=== PATIENT | female | born 1960 | race Caucasian/White ===

== ENCOUNTER 2023-02-19 08:05 | Inpatient (IN) | payer MEDICARE, BC ==
[~2023-02-19] VITALS: Ht 165.1 cm; Wt 159.5 kg
[~2023-02-19 08:05] MED LIST: ACET-2319 PO; CHOL200074 PO; ESCI20TA39 PO; FERR325T28 PO; HYDR-4383 PO; LEVO137T2 PO; LISI1TAB51 PO; NAPR375T PO; ONDA4TAB6 PO; OXYC-150 PO; PANT-47 PO
[2023-02-19] MEDS ORDERED: TETanus/Pertussis (Acell)/Diphther VAC/PF (Tdap-Adult) 0.5ml syringe IMVAC ONE (09:00)
[2023-02-19] MEDS ORDERED: silver sulfadiazine cream 400gm jar TP SCH (09:00)
[2023-02-19 09:13] LABS: BASOPHILS % (AUTO) 0.2 % (0-1); EOSINOPHILS # (AUTO) 0.2 X10'3 (0-0.9); EOSINOPHILS % (AUTO) 1.4 % (0-6); HEMATOCRIT 40.2 % (35.0-45.0); HEMOGLOBIN 12.9 g/dl (12.0-16.0); LYMPHOCYTES # (AUTO) 0.2 X10'3 (1.1-4.8); LYMPHOCYTES % (AUTO) 1.3 % (21-51); MEAN CORPUSCULAR HEMOGLOBIN 28.3 PG (27.0-31.0); MEAN CORPUSCULAR HGB CONC 32.2 g/dL (33.0-36.5); MEAN PLATELET VOLUME 9.2 FL (7.4-10.4); MONOCYTES # (AUTO) 0.6 X10'3 (0-0.9); MONOCYTES % (AUTO) 4.2 % (2-12); NEUTROPHILS # (AUTO) 13.9 X10'3 (1.8-7.7); NEUTROPHILS % (AUTO) 92.9 % (42-75); PLATELET COUNT 259 X10'3 (140-440); RED BLOOD COUNT 4.57 X10'6 (4.20-5.60); RED CELL DISTRIBUTION WIDTH 15.4 % (11.5-14.5); WHITE BLOOD COUNT 14.9 X10'3 (4.5-11.0)
[2023-02-19 09:17] LABS: INR 1.1 INR; PROTHROMBIN TIME 12.2 SECONDS (9.0-12.0)
[2023-02-19 09:21] LABS: ALANINE AMINOTRANSFERASE 33 U/L (12-78); ALBUMIN 2.8 G/DL (3.4-5.0); ALBUMIN/GLOBULIN RATIO 0.7 (1.1-1.5); ALKALINE PHOSPHATASE 37 IU/L (46-116); ANION GAP 17 (8-16); ASPARTATE AMINO TRANSFERASE 36 U/L (10-37); BILIRUBIN,TOTAL 1.3 MG/DL (0.1-1.0); BLOOD UREA NITROGEN 37 MG/DL (7-18); CALCIUM 8.1 MG/DL (8.5-10.1); CHLORIDE 90 MMOL/L (99-107); CREATININE 2.47 MG/DL (0.40-0.90); GLUCOSE 126 MG/DL (70-104); SODIUM 126 MMOL/L (135-145); TOTAL CARBON DIOXIDE 18.9 MMOL/L (24-32); TOTAL PROTEIN 7.1 G/DL (6.4-8.2); eCRCL 20 ML/MIN; eGFR 20 ML/MIN
[2023-02-19 09:24] LABS: POTASSIUM 3.7 MMOL/L (3.5-5.1)
[2023-02-19] MEDS ORDERED: morphine 4 MG/ML inj SYRINge IV ONE (11:10)
[2023-02-19 11:24] LABS: PLATELET ESTIMATE NORMAL; TOTAL CELLS COUNTED 100
[2023-02-19 11:25] LABS: ROULEAUX 1+
[2023-02-19 13:16] LABS: BILIRUBIN,URINE SMALL (Neg); CLARITY,URINE CLOUDY (Clear); COLOR,URINE YELLOW (Yellow); GLUCOSE, URINE 100 mg/dl (Neg); KETONES,URINE TRACE mg/dl (Neg); LEUKOCYTE ESTERASE ,URINE MODERATE (Neg); OCCULT BLOOD,URINE MODERATE (Neg); PROTEIN,URINE 100 mg/dl (Neg)
[2023-02-19 13:22] LABS: NITRITES, URINE NEGATIVE (Neg)
[2023-02-19 13:25] LABS: UA COLLECTION TYPE VOIDED
[2023-02-19 13:47] LABS: WBC,URINE TNTC /HPF (0-4)
[2023-02-19 13:48] LABS: WBC CLUMPS,URINE MANY /HPF (NEGATIVE)
[2023-02-19 13:50] LABS: CAL OXALATE CRYSTALS 4+ /HPF (NEGATIVE)
[2023-02-19 13:52] LABS: URIC ACID CRYSTALS 1+ /HPF (NEGATIVE)
[2023-02-19 13:54] LABS: BACTERIA,URINE 3+ /HPF (Neg)
[2023-02-19 14:01] LABS: MUCUS STRANDS NONE SEEN /LPF (Neg); SQUAMOUS EPITHELIAL CELL,UR MODERATE /LPF (FEW)
[2023-02-19] MEDS ORDERED: CefTRIAXone/D5W-Rocephin 1gm 50 ML IV ONE (14:10)
[2023-02-19] MEDS ORDERED: normal saline 1000ML IV soln IVB ONE ×2 (14:15)
[2023-02-19] MEDS ORDERED: diphenhydrAMINE 25mg capsule PO PRN (15:35)
[2023-02-19] MEDS ORDERED: normal saline 1000ml 1,000 ML IV SCH (15:35)
[2023-02-19] MEDS ORDERED: magnesium 4gm in 100ml NS 100 ML IV PRN (15:35)
[2023-02-19] MEDS ORDERED: potassium Cl 40MEQ/1/2NS 520ml 520 ML IV PRN (15:35)
[2023-02-19] MEDS ORDERED: acetaminophen 325mg tablet PO PRN (15:35)
[2023-02-19] MEDS ORDERED: magnesium 2GM in 50ml NS 50 ML IV PRN (15:35)
[2023-02-19] MEDS ORDERED: potassium Cl 20 mEq SR tablet PO PRN ×2 (15:35)
[2023-02-19] MEDS ORDERED: ondansetron/PF 4mg/2ml inj IV PRN (15:35)
[2023-02-19] MEDS ORDERED: magnesium Cl slow-release 64mg tablet PO PRN (15:35)
[2023-02-19] MEDS ORDERED: ipratropium/albuterol 3ml nebule NEB PRN (16:10)
[2023-02-19] MEDS ORDERED: morphine 2 MG/ML inj. syringe IV PRN ×2 (16:15)
[2023-02-19] MEDS ORDERED: HYDROcodone/acetaminophen 10/325mg tab PO PRN (16:15)
[2023-02-19] MEDS ORDERED: HYDROcodone/acetaminophen 5mg/325mg tablet PO PRN (16:15)
[2023-02-19] MEDS ORDERED: sodium chloride 0.45% 1,000 ML IV SCH (16:30)
[2023-02-19] MEDS ORDERED: AMLO5TAB16 PO (17:39)
[2023-02-19] MEDS ORDERED: ACET-1025 PO (17:39)
[2023-02-19] MEDS ORDERED: TRAZ-251 PO (17:39)
[2023-02-19] MEDS ORDERED: LOSA25TA41 PO (17:39)
[2023-02-19] MEDS ORDERED: OMEP20CA16 PO (17:39)
[2023-02-19] MEDS ORDERED: PHEN30CA21 PO (17:39)
[2023-02-19 17:59] LABS: HEMOGLOBIN A1C 5.6 % (4.5-6.2); PRO BRAIN NATRIURETIC PEPTIDE 10900 PG/ML (0-125)
[2023-02-19] MEDS ORDERED: normal saline 500ml IV soln 500 ML IV ONE (19:05)
[2023-02-19] MEDS: K and/or MAG REPLACEMENT MC SCH (19:06)
[2023-02-19] MEDS: docusate sod 100mg capsule PO SCH (20:00)
[2023-02-19] MEDS ORDERED: ciprofloxacin lact 400MG/200ML 200 ML IV SCH (20:00)
[2023-02-19 20:20] VITALS: BP 130/109; PULSE 120; RESP 25; TEMP 99.7; O2SAT 97
[2023-02-19] MEDS: heparin, porcine 5000 units/ml vial SQ SCH (21:38)
[2023-02-19 23:35] VITALS: PULSE 121; RESP 20; O2SAT 95
[2023-02-20] VITALS (36 sets, daily range): BP systolic 88–124; BP diastolic 42–66; PULSE 86–114; RESP 13–30; TEMP 98.4–99; O2SAT 94–97
[2023-02-20 07:53] LABS: ALANINE AMINOTRANSFERASE 31 U/L (12-78); ALBUMIN 1.9 G/DL (3.4-5.0); ALBUMIN/GLOBULIN RATIO 0.5 (1.1-1.5); ALKALINE PHOSPHATASE 30 IU/L (46-116); ANION GAP 13 (8-16); ASPARTATE AMINO TRANSFERASE 64 U/L (10-37); BILIRUBIN,TOTAL 1.1 MG/DL (0.1-1.0); BLOOD UREA NITROGEN 52 MG/DL (7-18); BUN/CREATININE RATIO 16.5 (10.0-20.0); CALCIUM 7.1 MG/DL (8.5-10.1); CHLORIDE 91 MMOL/L (99-107); CREATININE 3.16 MG/DL (0.40-0.90); GLUCOSE 93 MG/DL (70-104); MAGNESIUM 1.5 MG/DL (1.5-2.4); PHOSPHORUS 3.1 MG/DL (2.3-4.5); POTASSIUM 3.9 MMOL/L (3.5-5.1); SODIUM 123 MMOL/L (135-145); TOTAL CARBON DIOXIDE 19.5 MMOL/L (24-32); TOTAL PROTEIN 5.7 G/DL (6.4-8.2); eCRCL 16 ML/MIN; eGFR 15 ML/MIN
[2023-02-20 07:54] LABS: BASOPHILS % (AUTO) 0.1 % (0-1); EOSINOPHILS # (AUTO) 0.1 X10'3 (0-0.9); EOSINOPHILS % (AUTO) 0.9 % (0-6); HEMATOCRIT 39.4 % (35.0-45.0); HEMOGLOBIN 12.8 g/dl (12.0-16.0); LYMPHOCYTES # (AUTO) 0.4 X10'3 (1.1-4.8); LYMPHOCYTES % (AUTO) 3.5 % (21-51); MEAN CORPUSCULAR HEMOGLOBIN 28.1 PG (27.0-31.0); MEAN CORPUSCULAR HGB CONC 32.4 g/dL (33.0-36.5); MEAN CORPUSCULAR VOLUME 86.8 FL (78-98); MEAN PLATELET VOLUME 9.9 FL (7.4-10.4); MONOCYTES # (AUTO) 0.2 X10'3 (0-0.9); MONOCYTES % (AUTO) 1.5 % (2-12); NEUTROPHILS # (AUTO) 11.4 X10'3 (1.8-7.7); PLATELET COUNT 165 X10'3 (140-440); RED BLOOD COUNT 4.54 X10'6 (4.20-5.60); RED CELL DISTRIBUTION WIDTH 15.1 % (11.5-14.5); WHITE BLOOD COUNT 12.1 X10'3 (4.5-11.0)
[2023-02-20] MEDS: K and/or MAG REPLACEMENT MC SCH ×2 (08:00→20:00)
[2023-02-20] MEDS ORDERED: CefTRIAXone 2gm/D5W 50ml BAG 50 ML IV SCH (08:00)
[2023-02-20 08:54] LABS: PRO BRAIN NATRIURETIC PEPTIDE 11123 PG/ML (0-125)
[2023-02-20] MEDS: heparin, porcine 5000 units/ml vial SQ SCH ×2 (09:04→20:00)
[2023-02-20] MEDS: docusate sod 100mg capsule PO SCH ×2 (09:05→20:00)
[2023-02-20] MEDS ORDERED: normal saline 1000ml 1,000 ML IV SCH (10:05)
[2023-02-20 10:55] LABS: ABG BASE EXCESS -7.6 mmol/L (-2.0-2.0); ABG HCO3 16.1 mmol/L (22.0-26.0); ABG OXYGEN SATURATION 97.7 % (94-97); ABG PCO2 (T) 27.6 mmHg (32.0-45.0); ABG PH (T) 7.382 (7.350-7.450); ABG PO2 (T) 94.8 mmHg (75.0-100.0); ALLEN'S TEST POSITIVE; FCOHb 0.4 % (0.0-3.9); FHHb 2.3 % (0.0-5.0); FLOW 4 L/min; FO2Hb 97.3 % (94-97); MODE NASAL CANNULA; PATIENT TEMPERATURE 36.9; TOTAL HEMOGLOBIN 13.1 G/dl (12.0-16.0)
[2023-02-20] MEDS ORDERED: VANCOMYCIN 1,500MG inj. 1,500 MG in normal saline 500ml IV soln 300 ML IV STA (11:42)
[2023-02-20 11:45] LABS: PLATELET ESTIMATE NORMAL; TOTAL CELLS COUNTED 100
[2023-02-20] MEDS ORDERED: VANCOMYCIN 750MG IV in NS 250 ML IV SCH (13:00)
[2023-02-20] MEDS ORDERED: fentaNYL/PF 50MCG/1 ML 2ML syringe ONE ×2 (13:05→15:40)
[2023-02-20] MEDS ORDERED: sodium bicarbonate (8.4%) inj. 1 MEQ/ML ML ONE ×2 (13:09→15:49)
[2023-02-20] MEDS ORDERED: sevoflurane 250ml liquid IH ONE (13:09)
[2023-02-20] MEDS ORDERED: NORepinephrine 8 MG in NS 250 ML BAG (32 mcg/ml) IV ONE (13:09)
[2023-02-20] MEDS ORDERED: ceFAZolin 1000mg inj ONE ×2 (15:04→15:05)
[2023-02-20] MEDS ORDERED: ringers solution, lacted 1,000 ML IV SCH (15:05)
[2023-02-20] MEDS ORDERED: morphine 2 MG/ML inj. syringe IV PRN (15:05)
[2023-02-20] MEDS ORDERED: ondansetron/PF 4mg/2ml inj IV PRN (15:05)
[2023-02-20] MEDS ORDERED: succinylcholine 20mg/ml inj IV ONE (15:05)
[2023-02-20] MEDS ORDERED: morphine 4 MG/ML inj SYRINge IV PRN (15:05)
[2023-02-20] MEDS ORDERED: rocuronium 10mg/ml inj IV ONE ×2 (15:05)
[2023-02-20] MEDS ORDERED: etomidate 2mg/ml inj. ONE (15:06)
[2023-02-20] MEDS ORDERED: albumin (Human) 5% 250ml 250 ML IV ONE ×3 (15:07→15:44)
[2023-02-20] MEDS ORDERED: albumin (Human) 5% 250ml 750 ML IV ONE (15:16)
[2023-02-20] MEDS ORDERED: midazolam 1 mg/ML 2ml injection ONE (15:40)
[2023-02-20] MEDS ORDERED: calcium chloride 100 MG/1 ML inj IV ONE (15:49)
[2023-02-20] MEDS ORDERED: clindamycin 600mg/D5W 50ml 50 ML IV SCH (16:00)
[2023-02-20] MEDS ORDERED: propofol 1000mg/100ml bottle 100 ML IV ONE (16:21)
[2023-02-20] MEDS ORDERED: ringers solution, lacted 1,000 ML IV ONE ×2 (16:25)
[2023-02-20 16:47] LABS: ABG BASE EXCESS -10.3 mmol/L (-2.0-2.0); ABG HCO3 15.6 mmol/L (22.0-26.0); ABG PCO2 (T) 34.4 mmHg (32.0-45.0); ABG PH (T) 7.273 (7.350-7.450); ABG PO2 (T) 96.9 mmHg (75.0-100.0); FMetHb 0.3 % (0.0-1.5); FO2Hb 96.7 % (94-97); MODE VENT - SIMV; PATIENT TEMPERATURE 36.9; PEEP 5 cm H2O; RESPIRATORY RATE 14 b/min; TIDAL VOLUME 600 mL; TOTAL HEMOGLOBIN 10.1 G/dl (12.0-16.0)
[2023-02-20] MEDS: clindamycin-Cleocin 900mg/D5W 50 ML IV SCH (17:31)
[2023-02-20] MEDS: FENTANYL-0.9 % NACL/PF 100 ML IV PRN (17:32)
[2023-02-20 18:26] LABS: D-DIMER 1.19 MG/L FEU (0-0.50)
[2023-02-20] MEDS: ringers solution, lacted 1,000 ML IV SCH ×2 (19:17→23:05)
[2023-02-20] MEDS ORDERED: furosemide 40mg/4ml inj IV SCH (20:00)
[2023-02-20 20:20] LABS: MAGNESIUM 1.4 MG/DL (1.5-2.4); POTASSIUM 3.7 MMOL/L (3.5-5.1)
[2023-02-20] MEDS ORDERED: traZODone 50mg tablet PO SCH (21:00)
[2023-02-21] VITALS (47 sets, daily range): BP systolic 96–130; BP diastolic 42–64; PULSE 63–91; RESP 11–18; O2SAT 93–100
[2023-02-21] MEDS: clindamycin-Cleocin 900mg/D5W 50 ML IV SCH ×3 (00:04→15:25)
[2023-02-21] MEDS ORDERED: propofol 1000mg/100ml bottle 100 ML IV ONE (01:02)
[2023-02-21] MEDS: ringers solution, lacted 1,000 ML IV SCH ×3 (01:30→19:05)
[2023-02-21] MEDS: propofol 1000mg/100ml bottle 100 ML IV SCH ×5 (01:31→20:41)
[2023-02-21 02:41] LABS: ALANINE AMINOTRANSFERASE 22 U/L (12-78); ALBUMIN 1.7 G/DL (3.4-5.0); ALBUMIN/GLOBULIN RATIO 0.5 (1.1-1.5); ALKALINE PHOSPHATASE 42 IU/L (46-116); ANION GAP 15 (8-16); ASPARTATE AMINO TRANSFERASE 35 U/L (10-37); BILIRUBIN,TOTAL 0.7 MG/DL (0.1-1.0); BLOOD UREA NITROGEN 52 MG/DL (7-18); BUN/CREATININE RATIO 20.2 (10.0-20.0); CALCIUM 6.9 MG/DL (8.5-10.1); CHLORIDE 96 MMOL/L (99-107); CREATININE 2.58 MG/DL (0.40-0.90); EOSINOPHILS # (AUTO) 0.1 X10'3 (0-0.9); GLUCOSE 112 MG/DL (70-104); HEMATOCRIT 27.6 % (35.0-45.0); MAGNESIUM 2.2 MG/DL (1.5-2.4); MEAN CORPUSCULAR HEMOGLOBIN 28.3 PG (27.0-31.0); MONOCYTES # (AUTO) 0.4 X10'3 (0-0.9); NEUTROPHILS # (AUTO) 15.2 X10'3 (1.8-7.7); PHOSPHORUS 5.5 MG/DL (2.3-4.5); POTASSIUM 3.9 MMOL/L (3.5-5.1); SODIUM 128 MMOL/L (135-145); THYROID STIMULATING HORMONE 0.82 ulU/ml (0.34-4.50); TOTAL CARBON DIOXIDE 17.2 MMOL/L (24-32); TRIGLYCERIDES 218 MG/DL (20-135); eCRCL 20 ML/MIN; eGFR 19 ML/MIN
[2023-02-21 02:42] LABS: BASOPHILS % (AUTO) 0.1 % (0-1); EOSINOPHILS % (AUTO) 0.5 % (0-6); LYMPHOCYTES # (AUTO) 0.6 X10'3 (1.1-4.8); LYMPHOCYTES % (AUTO) 3.5 % (21-51); MEAN CORPUSCULAR HGB CONC 32.7 g/dL (33.0-36.5); MEAN CORPUSCULAR VOLUME 86.6 FL (78-98); MEAN PLATELET VOLUME 9.8 FL (7.4-10.4); MONOCYTES % (AUTO) 2.2 % (2-12); NEUTROPHILS % (AUTO) 93.7 % (42-75); PLATELET COUNT 134 X10'3 (140-440); RED BLOOD COUNT 3.18 X10'6 (4.20-5.60); RED CELL DISTRIBUTION WIDTH 15.5 % (11.5-14.5); WHITE BLOOD COUNT 16.2 X10'3 (4.5-11.0)
[2023-02-21 03:50] LABS: ABG BASE EXCESS -9.8 mmol/L (-2.0-2.0); ABG HCO3 15.8 mmol/L (22.0-26.0); ABG OXYGEN SATURATION 98.2 % (94-97); ABG PCO2 (T) 34.1 mmHg (32.0-45.0); ABG PH (T) 7.285 (7.350-7.450); ABG PO2 (T) 115.4 mmHg (75.0-100.0); FCOHb 0.3 % (0.0-3.9); FHHb 1.8 % (0.0-5.0); FMetHb 0.3 % (0.0-1.5); FO2Hb 97.6 % (94-97); MODE VENT - AC; PATIENT TEMPERATURE 37.3; PEEP 5 cm H2O; RESPIRATORY RATE 14 b/min; TIDAL VOLUME 600 mL; TOTAL HEMOGLOBIN 9.9 G/dl (12.0-16.0)
[2023-02-21 05:04] LABS: BURR CELLS 1+; ELLIPTOCYTES FEW; PLATELET ESTIMATE DECREASED; TOTAL CELLS COUNTED 100
[2023-02-21] MEDS: NORepinephrine 8mg/ 250ml NS 250 ML IV PRN ×2 (05:51→20:32)
[2023-02-21] MEDS ORDERED: ringers solution, lacted 1,000 ML IV ONE ×2 (06:50)
[2023-02-21] MEDS: FENTANYL-0.9 % NACL/PF 100 ML IV PRN ×2 (06:58→15:58)
[2023-02-21] MEDS ORDERED: O PO SCH (08:00)
[2023-02-21] MEDS ORDERED: ferrous sulfate 325mg tablet PO SCH (08:00)
[2023-02-21] MEDS ORDERED: levoTHYROXINE 112mcg tablet PO SCH ×2 (08:00→10:28)
[2023-02-21] MEDS ORDERED: ESCITALOPRAM 10 mg tablet 10 MG TABLET PO SCH (08:00)
[2023-02-21] MEDS: docusate sod 100mg capsule PO SCH ×2 (08:00→20:00)
[2023-02-21] MEDS ORDERED: DAPTOMYCIN IV SCH (08:00)
[2023-02-21] MEDS ORDERED: NORMAL SALINE IV SCH (08:00)
[2023-02-21] MEDS ORDERED: cholecalciferol (vitamin D3) 1,000 unit (25mcg) tablet PO SCH (08:00)
[2023-02-21] MEDS: PHENTERMINE HCL PO SCH (08:00)
[2023-02-21] MEDS: K and/or MAG REPLACEMENT MC SCH ×2 (08:00→20:00)
[2023-02-21] MEDS ORDERED: CefTRIAXone 2gm/D5W 50ml IV SCH (08:06)
[2023-02-21] MEDS: heparin, porcine 5000 units/ml vial SQ SCH ×2 (08:16→20:00)
[2023-02-21] MEDS: levoTHYROXINE 25mcg tablet PO SCH (08:27)
[2023-02-21] MEDS: nystatin 15 GM powder TP SCH ×3 (09:31→20:32)
[2023-02-21] MEDS ORDERED: ampicillin/sulbac 3gm/NS 100ml 100 ML IV SCH ×3 (09:45→15:56)
[2023-02-21] MEDS: pantoprazole 40 MG vial IV SCH (10:38)
[2023-02-21 12:04] LABS: BILIRUBIN,URINE NEGATIVE (Neg); CLARITY,URINE CLOUDY (Clear); COLOR,URINE YELLOW (Yellow); GLUCOSE, URINE NEGATIVE (Neg); KETONES,URINE NEGATIVE (Neg); LEUKOCYTE ESTERASE ,URINE TRACE (Neg); NITRITES, URINE NEGATIVE (Neg); OCCULT BLOOD,URINE SMALL (Neg); PH,URINE 5.5 (4.8-8.0); PROTEIN,URINE NEGATIVE (Neg); UROBILINOGEN,URINE 0.2 E.U/dL (0.2-1.0)
[2023-02-21 12:05] LABS: OSMOLALITY UA 201 MOSM/K (50-1400)
[2023-02-21 12:13] LABS: UA COLLECTION TYPE NON-SPECIFIED
[2023-02-21 12:14] LABS: SQUAMOUS EPITHELIAL CELL,UR FEW /LPF (FEW)
[2023-02-21 12:15] LABS: MUCUS STRANDS FEW /LPF (Neg); TRANSITIONAL EPI CELLS,URINE MANY /HPF
[2023-02-21 12:16] LABS: AMORPHOUS URATES 2+; BACTERIA,URINE 1+ /HPF (Neg); RBC,URINE 0-2 /HPF (0-2); RENAL CELLS, URINE FEW /HPF
[2023-02-21 12:17] LABS: SODIUM,URINE RANDOM < 15 MEQ/L; TOTAL PROTEIN,URINE RANDOM 27.5 MG/DL
[2023-02-21 13:02] LABS: UA EOSINOPHILS NO EOS /HPF
[2023-02-21 15:17] LABS: ALBUMIN 1.6 G/DL (3.4-5.0); ANION GAP 15 (8-16); BLOOD UREA NITROGEN 47 MG/DL (7-18); BUN/CREATININE RATIO 23.2 (10.0-20.0); CHLORIDE 100 MMOL/L (99-107); CREATININE 2.03 MG/DL (0.40-0.90); GLUCOSE 111 MG/DL (70-104); POTASSIUM 3.7 MMOL/L (3.5-5.1); SODIUM 131 MMOL/L (135-145); TOTAL CARBON DIOXIDE 15.9 MMOL/L (24-32); eCRCL 25 ML/MIN; eGFR 25 ML/MIN
[2023-02-21] MEDS: docusate sodium 100mg/10ml UD cup PO SCH (20:40)
[2023-02-22] VITALS (40 sets, daily range): BP systolic 88–138; BP diastolic 48–71; PULSE 56–111; RESP 14–22; O2SAT 94–99
[2023-02-22] MEDS: clindamycin-Cleocin 900mg/D5W 50 ML IV SCH ×4 (00:24→23:25)
[2023-02-22] MEDS: propofol 1000mg/100ml bottle 100 ML IV SCH ×5 (02:32→21:30)
[2023-02-22] MEDS: ringers solution, lacted 1,000 ML IV SCH ×4 (02:33→21:30)
[2023-02-22 03:25] LABS: BASOPHILS % (AUTO) 0.2 % (0-1); EOSINOPHILS # (AUTO) 0.4 X10'3 (0-0.9); EOSINOPHILS % (AUTO) 2.2 % (0-6); HEMOGLOBIN 8.4 g/dl (12.0-16.0); LYMPHOCYTES # (AUTO) 0.8 X10'3 (1.1-4.8); LYMPHOCYTES % (AUTO) 4.5 % (21-51); MEAN CORPUSCULAR HGB CONC 32.4 g/dL (33.0-36.5); MEAN CORPUSCULAR VOLUME 86.6 FL (78-98); MEAN PLATELET VOLUME 9.8 FL (7.4-10.4); MONOCYTES # (AUTO) 0.4 X10'3 (0-0.9); MONOCYTES % (AUTO) 2.4 % (2-12); NEUTROPHILS # (AUTO) 15.5 X10'3 (1.8-7.7); NEUTROPHILS % (AUTO) 90.7 % (42-75); PLATELET COUNT 115 X10'3 (140-440); RED BLOOD COUNT 3.01 X10'6 (4.20-5.60); RED CELL DISTRIBUTION WIDTH 15.7 % (11.5-14.5); WHITE BLOOD COUNT 17.1 X10'3 (4.5-11.0)
[2023-02-22 03:33] LABS: ALANINE AMINOTRANSFERASE 18 U/L (12-78); ALBUMIN 1.6 G/DL (3.4-5.0); ALBUMIN/GLOBULIN RATIO 0.5 (1.1-1.5); ALKALINE PHOSPHATASE 50 IU/L (46-116); ANION GAP 13 (8-16); ASPARTATE AMINO TRANSFERASE 23 U/L (10-37); BILIRUBIN,TOTAL 0.6 MG/DL (0.1-1.0); BLOOD UREA NITROGEN 41 MG/DL (7-18); CALCIUM 7.1 MG/DL (8.5-10.1); CHLORIDE 103 MMOL/L (99-107); CREATININE 1.71 MG/DL (0.40-0.90); GLUCOSE 108 MG/DL (70-104); MAGNESIUM 2.3 MG/DL (1.5-2.4); POTASSIUM 3.5 MMOL/L (3.5-5.1); SODIUM 135 MMOL/L (135-145); TOTAL CARBON DIOXIDE 18.8 MMOL/L (24-32); TOTAL PROTEIN 4.7 G/DL (6.4-8.2); eCRCL 30 ML/MIN; eGFR 30 ML/MIN
[2023-02-22 03:39] LABS: ABG BASE EXCESS -7.2 mmol/L (-2.0-2.0); ABG HCO3 17.5 mmol/L (22.0-26.0); ABG OXYGEN SATURATION 96.3 % (94-97); ABG PCO2 (T) 32.3 mmHg (32.0-45.0); ABG PH (T) 7.352 (7.350-7.450); ABG PO2 (T) 89.1 mmHg (75.0-100.0); FCOHb 0.3 % (0.0-3.9); FHHb 3.7 % (0.0-5.0); FMetHb 0.3 % (0.0-1.5); FO2Hb 95.7 % (94-97); MODE ac/prvc; PATIENT TEMPERATURE 37.2; PEEP 5 cm H2O; RESPIRATORY RATE 14 b/min; TIDAL VOLUME 600 mL; TOTAL HEMOGLOBIN 9.2 G/dl (12.0-16.0)
[2023-02-22 05:26] LABS: TOTAL CELLS COUNTED 100
[2023-02-22 05:27] LABS: BURR CELLS FEW; ELLIPTOCYTES FEW; PLATELET ESTIMATE DECREASED
[2023-02-22] MEDS: FENTANYL-0.9 % NACL/PF 100 ML IV PRN ×3 (06:28→21:30)
[2023-02-22] MEDS ORDERED: ringers solution, lacted 1,000 ML IV ONE ×2 (06:45)
[2023-02-22] MEDS ORDERED: desflurane 240ml liquid inh. IH ONE (07:25)
[2023-02-22] MEDS: K and/or MAG REPLACEMENT MC SCH ×2 (08:00→20:00)
[2023-02-22] MEDS: PHENTERMINE HCL PO SCH (08:00)
[2023-02-22] MEDS: pantoprazole 40 MG vial IV SCH (10:49)
[2023-02-22] MEDS: docusate sodium 100mg/10ml UD cup PO SCH (10:49)
[2023-02-22] MEDS: levoTHYROXINE 25mcg tablet PO SCH (10:49)
[2023-02-22] MEDS: heparin, porcine 5000 units/ml vial SQ SCH ×2 (10:51→20:28)
[2023-02-22] MEDS: nystatin 15 GM powder TP SCH ×3 (10:59→20:33)
[2023-02-22] MEDS ORDERED: acetaminophen 325mg/10.15ml oral unit dose solution OGT PRN (14:14)
[2023-02-22] MEDS ORDERED: POTASSIUM BICARB 20meq eff tab 20 MEQ TABLET.EFF OGT PRN ×2 (14:15)
[2023-02-22] MEDS: ampicillin/sulbac 3gm/NS 100ml 100 ML IV SCH ×2 (15:36→23:24)
[2023-02-22] MEDS: NORepinephrine 8mg/ 250ml NS 250 ML IV PRN (17:49)
[2023-02-22] MEDS: docusate sodium 100mg/10ml UD cup OGT SCH (20:27)
[2023-02-23] VITALS (30 sets, daily range): BP systolic 107–155; BP diastolic 48–72; PULSE 68–93; RESP 14–24; O2SAT 94–99
[2023-02-23] MEDS: NORepinephrine 8mg/ 250ml NS 250 ML IV PRN (01:37)
[2023-02-23 02:01] LABS: BASOPHILS # (AUTO) 0.1 X10'3 (0-0.2); BASOPHILS % (AUTO) 0.2 % (0-1); EOSINOPHILS # (AUTO) 0.6 X10'3 (0-0.9); EOSINOPHILS % (AUTO) 2.5 % (0-6); HEMATOCRIT 26.3 % (35.0-45.0); HEMOGLOBIN 8.5 g/dl (12.0-16.0); LYMPHOCYTES # (AUTO) 1.3 X10'3 (1.1-4.8); LYMPHOCYTES % (AUTO) 5.2 % (21-51); MEAN CORPUSCULAR HEMOGLOBIN 27.8 PG (27.0-31.0); MEAN CORPUSCULAR HGB CONC 32.3 g/dL (33.0-36.5); MEAN CORPUSCULAR VOLUME 86.1 FL (78-98); MEAN PLATELET VOLUME 9.4 FL (7.4-10.4); MONOCYTES # (AUTO) 0.7 X10'3 (0-0.9); MONOCYTES % (AUTO) 2.8 % (2-12); NEUTROPHILS # (AUTO) 21.6 X10'3 (1.8-7.7); NEUTROPHILS % (AUTO) 89.3 % (42-75); PLATELET COUNT 131 X10'3 (140-440); RED BLOOD COUNT 3.06 X10'6 (4.20-5.60); RED CELL DISTRIBUTION WIDTH 15.4 % (11.5-14.5); WHITE BLOOD COUNT 24.2 X10'3 (4.5-11.0)
[2023-02-23 02:24] LABS: ALANINE AMINOTRANSFERASE 18 U/L (12-78); ALBUMIN 1.5 G/DL (3.4-5.0); ALBUMIN/GLOBULIN RATIO 0.4 (1.1-1.5); ALKALINE PHOSPHATASE 56 IU/L (46-116); ANION GAP 12 (8-16); ASPARTATE AMINO TRANSFERASE 23 U/L (10-37); BILIRUBIN,TOTAL 0.9 MG/DL (0.1-1.0); BLOOD UREA NITROGEN 29 MG/DL (7-18); BUN/CREATININE RATIO 24.2 (10.0-20.0); CALCIUM 7.5 MG/DL (8.5-10.1); CHLORIDE 106 MMOL/L (99-107); GLUCOSE 147 MG/DL (70-104); MAGNESIUM 2.2 MG/DL (1.5-2.4); PHOSPHORUS 3.1 MG/DL (2.3-4.5); POTASSIUM 3.2 MMOL/L (3.5-5.1); SODIUM 139 MMOL/L (135-145); TOTAL CARBON DIOXIDE 20.9 MMOL/L (24-32); TOTAL PROTEIN 4.9 G/DL (6.4-8.2); eCRCL 42 ML/MIN; eGFR 45 ML/MIN
[2023-02-23] MEDS ORDERED: potassium Cl 40MEQ/1/2NS 520ml 520 ML IV PRN (02:35)
[2023-02-23] MEDS: propofol 1000mg/100ml bottle 100 ML IV SCH ×2 (02:58→08:19)
[2023-02-23] MEDS: ringers solution, lacted 1,000 ML IV SCH ×4 (02:58→22:55)
[2023-02-23] MEDS: potassium Cl 40MEQ/270ML bag 270 ML IV PRN (03:23)
[2023-02-23 03:45] LABS: ABG BASE EXCESS -4.2 mmol/L (-2.0-2.0); ABG HCO3 20.5 mmol/L (22.0-26.0); ABG OXYGEN SATURATION 92.6 % (94-97); ABG PCO2 (T) 36.5 mmHg (32.0-45.0); ABG PH (T) 7.369 (7.350-7.450); ABG PO2 (T) 66.6 mmHg (75.0-100.0); ALLEN'S TEST Modified; FCOHb 0.2 % (0.0-3.9); FHHb 7.4 % (0.0-5.0); FMetHb 0.3 % (0.0-1.5); FO2Hb 92.1 % (94-97); MODE ac/prvc; PATIENT TEMPERATURE 37.5; PEEP 5 cm H2O; RESPIRATORY RATE 14 b/min; TIDAL VOLUME 600 mL
[2023-02-23] MEDS: FENTANYL-0.9 % NACL/PF 100 ML IV PRN (04:50)
[2023-02-23] MEDS: PHENTERMINE HCL PO SCH (08:00)
[2023-02-23] MEDS: K and/or MAG REPLACEMENT MC SCH ×2 (08:00→19:51)
[2023-02-23] MEDS: clindamycin-Cleocin 900mg/D5W 50 ML IV SCH ×3 (08:18→23:51)
[2023-02-23] MEDS: docusate sodium 100mg/10ml UD cup OGT SCH ×2 (08:19→19:50)
[2023-02-23] MEDS: nystatin 15 GM powder TP SCH ×3 (08:19→19:51)
[2023-02-23] MEDS: ampicillin/sulbac 3gm/NS 100ml 100 ML IV SCH ×3 (08:19→19:50)
[2023-02-23] MEDS: heparin, porcine 5000 units/ml vial SQ SCH ×2 (08:20→19:50)
[2023-02-23] MEDS: levoTHYROXINE 112mcg tablet OGT SCH (08:20)
[2023-02-23] MEDS: levoTHYROXINE 25mcg tablet OGT SCH (08:20)
[2023-02-23] MEDS: pantoprazole 40 MG vial IV SCH (08:23)
[2023-02-23 12:10] LABS: ABG BASE EXCESS -2.1 mmol/L (-2.0-2.0); ABG HCO3 23.4 mmol/L (22.0-26.0); ABG OXYGEN SATURATION 96.8 % (94-97); ABG PCO2 (T) 45.2 mmHg (32.0-45.0); ABG PH (T) 7.337 (7.350-7.450); ABG PO2 (T) 96.8 mmHg (75.0-100.0); ALLEN'S TEST POSITIVE; FCOHb 0.2 % (0.0-3.9); FHHb 3.2 % (0.0-5.0); FMetHb 0.3 % (0.0-1.5); FO2Hb 96.3 % (94-97); MODE VENT - CPAP/PS; PEEP 5 cm H2O; TOTAL HEMOGLOBIN 9.1 G/dl (12.0-16.0)
[2023-02-23] MEDS ORDERED: VANCOMYCIN LEVEL IV ONE (12:30)
[2023-02-23] MEDS ORDERED: fluconazole-Diflucan 200mg/NS 100 ML IV ONE (20:15)
[2023-02-23] MEDS: morphine 2 MG/ML inj. syringe IV PRN (21:16)
[2023-02-24] VITALS (37 sets, daily range): BP systolic 115–171; BP diastolic 46–81; PULSE 73–87; RESP 12–79; TEMP 98.7–98.9; O2SAT 93–100
[2023-02-24] MEDS: ampicillin/sulbac 3gm/NS 100ml 100 ML IV SCH ×4 (01:46→19:55)
[2023-02-24 02:29] LABS: BASOPHILS # (AUTO) 0.1 X10'3 (0-0.2); BASOPHILS % (AUTO) 0.3 % (0-1); EOSINOPHILS # (AUTO) 0.5 X10'3 (0-0.9); EOSINOPHILS % (AUTO) 2.3 % (0-6); HEMATOCRIT 22.7 % (35.0-45.0); HEMOGLOBIN 7.2 g/dl (12.0-16.0); LYMPHOCYTES # (AUTO) 1.1 X10'3 (1.1-4.8); LYMPHOCYTES % (AUTO) 5.4 % (21-51); MEAN CORPUSCULAR HEMOGLOBIN 27.8 PG (27.0-31.0); MEAN CORPUSCULAR HGB CONC 31.8 g/dL (33.0-36.5); MEAN CORPUSCULAR VOLUME 87.3 FL (78-98); MEAN PLATELET VOLUME 9.1 FL (7.4-10.4); MONOCYTES % (AUTO) 4.7 % (2-12); NEUTROPHILS # (AUTO) 17.8 X10'3 (1.8-7.7); NEUTROPHILS % (AUTO) 87.3 % (42-75); PLATELET COUNT 137 X10'3 (140-440); RED BLOOD COUNT 2.61 X10'6 (4.20-5.60); RED CELL DISTRIBUTION WIDTH 16.1 % (11.5-14.5); WHITE BLOOD COUNT 20.4 X10'3 (4.5-11.0)
[2023-02-24 02:42] LABS: ALANINE AMINOTRANSFERASE 12 U/L (12-78); ALBUMIN 1.4 G/DL (3.4-5.0); ALBUMIN/GLOBULIN RATIO 0.4 (1.1-1.5); ALKALINE PHOSPHATASE 44 IU/L (46-116); ANION GAP 3 (8-16); ASPARTATE AMINO TRANSFERASE 16 U/L (10-37); BILIRUBIN,TOTAL 0.8 MG/DL (0.1-1.0); BLOOD UREA NITROGEN 19 MG/DL (7-18); BUN/CREATININE RATIO 23.5 (10.0-20.0); CALCIUM 7.6 MG/DL (8.5-10.1); CHLORIDE 110 MMOL/L (99-107); CREATININE 0.81 MG/DL (0.40-0.90); GLUCOSE 97 MG/DL (70-104); POTASSIUM 3.5 MMOL/L (3.5-5.1); SODIUM 140 MMOL/L (135-145); TOTAL PROTEIN 4.8 G/DL (6.4-8.2); TRIGLYCERIDES 181 MG/DL (20-135); eCRCL 62 ML/MIN; eGFR 71 ML/MIN
[2023-02-24] MEDS: levoTHYROXINE 25mcg tablet OGT SCH ×2 (07:00→07:37)
[2023-02-24] MEDS: levoTHYROXINE 112mcg tablet OGT SCH ×2 (07:00→07:37)
[2023-02-24] MEDS: ringers solution, lacted 1,000 ML IV SCH ×3 (07:05→23:43)
[2023-02-24] MEDS: fluconazole-Diflucan 200mg/NS 100 ML IV SCH (07:35)
[2023-02-24] MEDS: clindamycin-Cleocin 900mg/D5W 50 ML IV SCH ×3 (07:36→23:43)
[2023-02-24] MEDS: heparin, porcine 5000 units/ml vial SQ SCH ×2 (07:37→20:02)
[2023-02-24] MEDS: docusate sod 100mg capsule PO SCH ×2 (07:37→08:00)
[2023-02-24] MEDS: lactobacillus rhamnosus 10,000 MMU CELLS/CAPSULE PO SCH ×3 (07:37→20:01)
[2023-02-24] MEDS: nystatin 15 GM powder TP SCH ×3 (07:38→19:56)
[2023-02-24] MEDS: pantoprazole 40 MG vial IV SCH (07:38)
[2023-02-24] MEDS: PHENTERMINE HCL PO SCH (08:00)
[2023-02-24] MEDS: propofol 1000mg/100ml bottle 100 ML IV SCH (08:26)
[2023-02-24] MEDS: K and/or MAG REPLACEMENT MC SCH ×2 (08:55→20:00)
[2023-02-24] MEDS: morphine 2 MG/ML inj. syringe IV PRN ×5 (10:55→23:07)
[2023-02-24] MEDS: docusate sodium 100mg/10ml UD cup PO SCH (19:55)
[2023-02-25] VITALS (34 sets, daily range): BP systolic 139–171; BP diastolic 63–85; PULSE 76–90; RESP 12–26; O2SAT 20–98
[2023-02-25] MEDS: ampicillin/sulbac 3gm/NS 100ml 100 ML IV SCH ×4 (01:48→19:28)
[2023-02-25 02:32] LABS: BASOPHILS # (AUTO) 0.1 X10'3 (0-0.2); BASOPHILS % (AUTO) 0.3 % (0-1); HEMOGLOBIN 8.8 g/dl (12.0-16.0); LYMPHOCYTES # (AUTO) 1.1 X10'3 (1.1-4.8); WHITE BLOOD COUNT 23.4 X10'3 (4.5-11.0)
[2023-02-25 02:33] LABS: EOSINOPHILS # (AUTO) 0.4 X10'3 (0-0.9); EOSINOPHILS % (AUTO) 1.5 % (0-6); HEMATOCRIT 27.3 % (35.0-45.0); LYMPHOCYTES % (AUTO) 4.7 % (21-51); MEAN CORPUSCULAR HEMOGLOBIN 28.2 PG (27.0-31.0); MEAN CORPUSCULAR HGB CONC 32.4 g/dL (33.0-36.5); MEAN CORPUSCULAR VOLUME 87.1 FL (78-98); MONOCYTES % (AUTO) 4.3 % (2-12); NEUTROPHILS # (AUTO) 20.9 X10'3 (1.8-7.7); NEUTROPHILS % (AUTO) 89.2 % (42-75); PLATELET COUNT 184 X10'3 (140-440); RED BLOOD COUNT 3.13 X10'6 (4.20-5.60); RED CELL DISTRIBUTION WIDTH 15.7 % (11.5-14.5)
[2023-02-25 02:48] LABS: ALANINE AMINOTRANSFERASE 14 U/L (12-78); ALBUMIN 1.5 G/DL (3.4-5.0); ALBUMIN/GLOBULIN RATIO 0.4 (1.1-1.5); ALKALINE PHOSPHATASE 75 IU/L (46-116); ANION GAP 7 (8-16); ASPARTATE AMINO TRANSFERASE 14 U/L (10-37); BILIRUBIN,TOTAL 0.5 MG/DL (0.1-1.0); BLOOD UREA NITROGEN 14 MG/DL (7-18); BUN/CREATININE RATIO 21.5 (10.0-20.0); CALCIUM 7.8 MG/DL (8.5-10.1); CHLORIDE 109 MMOL/L (99-107); CREATININE 0.65 MG/DL (0.40-0.90); GLUCOSE 121 MG/DL (70-104); MAGNESIUM 2.1 MG/DL (1.5-2.4); PHOSPHORUS 2.7 MG/DL (2.3-4.5); POTASSIUM 3.4 MMOL/L (3.5-5.1); PREALBUMIN 8.9 MG/DL (19-36); SODIUM 143 MMOL/L (135-145); TOTAL PROTEIN 5.4 G/DL (6.4-8.2); eCRCL 78 ML/MIN; eGFR > 90 ML/MIN
[2023-02-25 03:36] LABS: TOTAL CELLS COUNTED 100
[2023-02-25 03:38] LABS: PLATELET ESTIMATE NORMAL
[2023-02-25 03:40] LABS: ELLIPTOCYTES 1+; POIKILOCYTOSIS 1+
[2023-02-25 03:41] LABS: STOMATOCYTES 2+
[2023-02-25] MEDS: potassium Cl 40MEQ/270ML bag 270 ML IV PRN (03:45)
[2023-02-25] MEDS: K and/or MAG REPLACEMENT MC SCH ×2 (07:17→20:00)
[2023-02-25] MEDS: pantoprazole 40 MG vial IV SCH (07:57)
[2023-02-25] MEDS: levoTHYROXINE 112mcg tablet OGT SCH (07:57)
[2023-02-25] MEDS: heparin, porcine 5000 units/ml vial SQ SCH ×2 (07:57→19:30)
[2023-02-25] MEDS: levoTHYROXINE 25mcg tablet OGT SCH (07:57)
[2023-02-25] MEDS: lactobacillus rhamnosus 10,000 MMU CELLS/CAPSULE PO SCH ×2 (07:57→19:30)
[2023-02-25] MEDS: nystatin 15 GM powder TP SCH ×3 (07:58→19:30)
[2023-02-25] MEDS: clindamycin-Cleocin 900mg/D5W 50 ML IV SCH ×3 (07:58→23:14)
[2023-02-25] MEDS: fluconazole-Diflucan 200mg/NS 100 ML IV SCH (07:58)
[2023-02-25] MEDS: docusate sodium 100mg/10ml UD cup PO SCH ×2 (08:00→19:28)
[2023-02-25] MEDS: morphine 2 MG/ML inj. syringe IV PRN ×6 (08:06→22:29)
[2023-02-25] MEDS ORDERED: furosemide 40mg/4ml inj IV ONE (10:25)
[2023-02-25] MEDS: ipratropium/albuterol 3ml nebule NEB SCH ×4 (11:26→23:22)
[2023-02-25] MEDS: furosemide 20 MG/2 ML vial IV SCH (20:00)
[2023-02-26] VITALS (38 sets, daily range): BP systolic 137–170; BP diastolic 64–86; PULSE 76–89; RESP 14–25; O2SAT 89–100
[2023-02-26 02:09] LABS: ALANINE AMINOTRANSFERASE 10 U/L (12-78); ALBUMIN 1.6 G/DL (3.4-5.0); ALBUMIN/GLOBULIN RATIO 0.4 (1.1-1.5); ALKALINE PHOSPHATASE 51 IU/L (46-116); ANION GAP 6 (8-16); ASPARTATE AMINO TRANSFERASE 20 U/L (10-37); BILIRUBIN,TOTAL 0.5 MG/DL (0.1-1.0); BLOOD UREA NITROGEN 12 MG/DL (7-18); BUN/CREATININE RATIO 16.9 (10.0-20.0); CHLORIDE 106 MMOL/L (99-107); CREATININE 0.71 MG/DL (0.40-0.90); GLUCOSE 138 MG/DL (70-104); MAGNESIUM 1.9 MG/DL (1.5-2.4); PHOSPHORUS 2.9 MG/DL (2.3-4.5); POTASSIUM 3.3 MMOL/L (3.5-5.1); SODIUM 145 MMOL/L (135-145); TOTAL CARBON DIOXIDE 33.3 MMOL/L (24-32); TOTAL PROTEIN 5.8 G/DL (6.4-8.2); eCRCL 71 ML/MIN; eGFR 83 ML/MIN
[2023-02-26 02:14] LABS: BASOPHILS # (AUTO) 0.1 X10'3 (0-0.2); BASOPHILS % (AUTO) 0.3 % (0-1); EOSINOPHILS # (AUTO) 0.3 X10'3 (0-0.9); EOSINOPHILS % (AUTO) 1.4 % (0-6); HEMATOCRIT 27.3 % (35.0-45.0); HEMOGLOBIN 8.9 g/dl (12.0-16.0); LYMPHOCYTES # (AUTO) 1.3 X10'3 (1.1-4.8); LYMPHOCYTES % (AUTO) 6.6 % (21-51); MEAN CORPUSCULAR HEMOGLOBIN 28.5 PG (27.0-31.0); MEAN CORPUSCULAR HGB CONC 32.6 g/dL (33.0-36.5); MEAN CORPUSCULAR VOLUME 87.5 FL (78-98); NEUTROPHILS % (AUTO) 86.7 % (42-75); PLATELET COUNT 220 X10'3 (140-440); RED BLOOD COUNT 3.12 X10'6 (4.20-5.60); RED CELL DISTRIBUTION WIDTH 15.8 % (11.5-14.5); WHITE BLOOD COUNT 19.7 X10'3 (4.5-11.0)
[2023-02-26] MEDS: POTASSIUM BICARB 20meq eff tab 20 MEQ TABLET.EFF PO PRN ×2 (02:56→10:38)
[2023-02-26] MEDS: ampicillin/sulbac 3gm/NS 100ml 100 ML IV SCH ×4 (02:56→19:49)
[2023-02-26] MEDS: ipratropium/albuterol 3ml nebule NEB SCH ×6 (03:07→23:03)
[2023-02-26 05:16] LABS: NUCLEATED RED BLOOD CELLS 1 /100WBC (0-0); PLATELET ESTIMATE NORMAL; POLYCHROMASIA FEW; STOMATOCYTES 1+; TOTAL CELLS COUNTED 100
[2023-02-26] MEDS: K and/or MAG REPLACEMENT MC SCH ×2 (07:15→20:00)
[2023-02-26] MEDS: docusate sodium 100mg/10ml UD cup PO SCH (07:16)
[2023-02-26] MEDS: pantoprazole 40 MG vial IV SCH (07:47)
[2023-02-26] MEDS: furosemide 20 MG/2 ML vial IV SCH ×2 (07:47→19:50)
[2023-02-26] MEDS: clindamycin-Cleocin 900mg/D5W 50 ML IV SCH ×2 (07:48→16:13)
[2023-02-26] MEDS: levoTHYROXINE 112mcg tablet OGT SCH (07:48)
[2023-02-26] MEDS: lactobacillus rhamnosus 10,000 MMU CELLS/CAPSULE PO SCH ×2 (07:48→20:00)
[2023-02-26] MEDS: levoTHYROXINE 25mcg tablet OGT SCH (07:48)
[2023-02-26] MEDS: fluconazole-Diflucan 200mg/NS 100 ML IV SCH (07:48)
[2023-02-26] MEDS: heparin, porcine 5000 units/ml vial SQ SCH ×2 (07:48→20:00)
[2023-02-26] MEDS: nystatin 15 GM powder TP SCH ×3 (07:49→20:00)
[2023-02-26] MEDS ORDERED: furosemide 20 MG/2 ML vial IV ONE (09:50)
[2023-02-26] MEDS: morphine 2 MG/ML inj. syringe IV PRN ×2 (10:40→14:43)
[2023-02-26] MEDS ORDERED: acetaminophen 325mg/10.15ml oral unit dose solution NG PRN (10:47)
[2023-02-26] MEDS ORDERED: POTASSIUM BICARB 20meq eff tab 20 MEQ TABLET.EFF NG PRN (10:48)
[2023-02-26] MEDS: calcium carbonate 500mg chew tablet NG SCH ×2 (14:03→17:47)
[2023-02-26] MEDS: docusate sodium 100mg/10ml UD cup NG SCH (19:50)
[2023-02-27] VITALS (42 sets, daily range): BP systolic 136–179; BP diastolic 59–107; PULSE 69–89; RESP 11–31; O2SAT 90–99
[2023-02-27] MEDS: clindamycin-Cleocin 900mg/D5W 50 ML IV SCH ×3 (01:12→16:00)
[2023-02-27] MEDS: ampicillin/sulbac 3gm/NS 100ml 100 ML IV SCH ×4 (02:28→20:00)
[2023-02-27 02:50] LABS: BASOPHILS # (AUTO) 0.1 X10'3 (0-0.2); BASOPHILS % (AUTO) 0.5 % (0-1); EOSINOPHILS # (AUTO) 0.2 X10'3 (0-0.9); EOSINOPHILS % (AUTO) 1.5 % (0-6); HEMATOCRIT 25.6 % (35.0-45.0); HEMOGLOBIN 8.3 g/dl (12.0-16.0); LYMPHOCYTES # (AUTO) 1.5 X10'3 (1.1-4.8); LYMPHOCYTES % (AUTO) 9.6 % (21-51); MEAN CORPUSCULAR HEMOGLOBIN 28.5 PG (27.0-31.0); MEAN CORPUSCULAR HGB CONC 32.6 g/dL (33.0-36.5); MEAN CORPUSCULAR VOLUME 87.7 FL (78-98); MEAN PLATELET VOLUME 8.7 FL (7.4-10.4); MONOCYTES # (AUTO) 0.8 X10'3 (0-0.9); MONOCYTES % (AUTO) 5.2 % (2-12); NEUTROPHILS # (AUTO) 12.6 X10'3 (1.8-7.7); NEUTROPHILS % (AUTO) 83.2 % (42-75); PLATELET COUNT 248 X10'3 (140-440); RED BLOOD COUNT 2.92 X10'6 (4.20-5.60); RED CELL DISTRIBUTION WIDTH 15.4 % (11.5-14.5); WHITE BLOOD COUNT 15.2 X10'3 (4.5-11.0)
[2023-02-27 03:03] LABS: ALANINE AMINOTRANSFERASE 13 U/L (12-78); ALBUMIN 1.6 G/DL (3.4-5.0); ALBUMIN/GLOBULIN RATIO 0.4 (1.1-1.5); ALKALINE PHOSPHATASE 33 IU/L (46-116); ANION GAP -1 (8-16); ASPARTATE AMINO TRANSFERASE 20 U/L (10-37); BILIRUBIN,TOTAL 0.4 MG/DL (0.1-1.0); BLOOD UREA NITROGEN 11 MG/DL (7-18); BUN/CREATININE RATIO 16.2 (10.0-20.0); CHLORIDE 102 MMOL/L (99-107); CREATININE 0.68 MG/DL (0.40-0.90); GLUCOSE 116 MG/DL (70-104); MAGNESIUM 1.6 MG/DL (1.5-2.4); PHOSPHORUS 2.8 MG/DL (2.3-4.5); POTASSIUM 3.2 MMOL/L (3.5-5.1); SODIUM 138 MMOL/L (135-145); TOTAL CARBON DIOXIDE 37.3 MMOL/L (24-32); TOTAL PROTEIN 6.1 G/DL (6.4-8.2); TRIGLYCERIDES 99 MG/DL (20-135); eCRCL 74 ML/MIN; eGFR 87 ML/MIN
[2023-02-27] MEDS: ipratropium/albuterol 3ml nebule NEB SCH ×6 (03:05→23:02)
[2023-02-27 05:43] LABS: NUCLEATED RED BLOOD CELLS 1 /100WBC (0-0); TOTAL CELLS COUNTED 100
[2023-02-27 05:44] LABS: PLATELET ESTIMATE NORMAL; POLYCHROMASIA FEW; STOMATOCYTES 2+
[2023-02-27] MEDS: levoTHYROXINE 112mcg tablet NG SCH (07:00)
[2023-02-27] MEDS: levoTHYROXINE 25mcg tablet NG SCH (07:00)
[2023-02-27] MEDS: fluconazole-Diflucan 200mg/NS 100 ML IV SCH (07:16)
[2023-02-27] MEDS: furosemide 20 MG/2 ML vial IV SCH ×2 (07:17→21:21)
[2023-02-27] MEDS ORDERED: magnesium 2GM in 50ml NS 50 ML IV PRN (07:55)
[2023-02-27] MEDS ORDERED: magnesium Cl slow-release 64mg tablet PO PRN (07:55)
[2023-02-27] MEDS ORDERED: potassium Cl 20 mEq SR tablet PO PRN ×2 (07:55)
[2023-02-27] MEDS ORDERED: magnesium 4gm in 100ml NS 100 ML IV PRN (07:55)
[2023-02-27] MEDS ORDERED: potassium Cl 40MEQ/1/2NS 520ml 520 ML IV PRN (07:55)
[2023-02-27] MEDS: MULTIVIT-MIN/FERROUS GLUCONATE 9 MG/15 ML LIQUID NG SCH (08:00)
[2023-02-27] MEDS: lactobacillus rhamnosus 10,000 MMU CELLS/CAPSULE PO SCH ×2 (08:00→21:22)
[2023-02-27] MEDS: cholecalciferol (vitamin D3) 1,000 unit (25mcg) tablet NG SCH (08:00)
[2023-02-27] MEDS: heparin, porcine 5000 units/ml vial SQ SCH ×2 (08:00→21:21)
[2023-02-27] MEDS: K and/or MAG REPLACEMENT MC SCH ×3 (08:00→20:00)
[2023-02-27] MEDS: docusate sodium 100mg/10ml UD cup NG SCH ×2 (08:00→20:00)
[2023-02-27] MEDS: pantoprazole 40 MG vial IV SCH (08:00)
[2023-02-27] MEDS: cyanocobalamin 500mcg tablet NG SCH (08:00)
[2023-02-27] MEDS: nystatin 15 GM powder TP SCH ×3 (08:25→21:22)
[2023-02-27] MEDS: calcium carbonate 500mg chew tablet NG SCH ×3 (08:30→17:30)
[2023-02-27] MEDS: morphine 2 MG/ML inj. syringe IV PRN ×2 (11:02→14:06)
[2023-02-27] MEDS ORDERED: BUPIVAcaine/PF 2.5mg/ml (0.25%) 10ml vial ONE (15:01)
[2023-02-27] MEDS ORDERED: bacitracin 15gm ointment TP ONE ×2 (15:01→15:02)
[2023-02-27] MEDS ORDERED: ringers solution, lacted 1,000 ML IV SCH (15:35)
[2023-02-27] MEDS ORDERED: ondansetron/PF 4mg/2ml inj IV PRN (15:35)
[2023-02-27] MEDS ORDERED: morphine 4 MG/ML inj SYRINge IV PRN (15:35)
[2023-02-27] MEDS ORDERED: meperidine/PF 25mg/ml syringe IV PRN ×3 (15:35)
[2023-02-27] MEDS ORDERED: morphine 2 MG/ML inj. syringe IV PRN (15:35)
[2023-02-27] MEDS ORDERED: proCHLORperazine 10 MG/2 ml inj IV PRN (15:35)
[2023-02-27] MEDS ORDERED: sevoflurane 250ml liquid IH ONE (15:37)
[2023-02-27] MEDS ORDERED: propofol 10mg/ml 20ml vial IV ONE (15:37)
[2023-02-27] MEDS ORDERED: sugammadex 200mg/2ml injection IV ONE (15:37)
[2023-02-27] MEDS ORDERED: dexamethasone sod phosphate 10mg/ml inj ONE (15:37)
[2023-02-27] MEDS ORDERED: midazolam 1 mg/ML 2ml injection ONE (15:37)
[2023-02-27] MEDS ORDERED: glycopyrrolate 0.2mg/ml inj ONE (15:37)
[2023-02-27] MEDS ORDERED: fentaNYL /PF 50mcg/ml 5ml ampule ONE (15:37)
[2023-02-27] MEDS ORDERED: rocuronium 10mg/ml inj IV ONE (15:37)
[2023-02-27] MEDS ORDERED: LIDOcaine 2% (20mg/ml) 5ml vial ONE (15:37)
[2023-02-27] MEDS ORDERED: neostigmine methylsulfate 1 MG/ML 10ml vial ONE (15:37)
[2023-02-27] MEDS: hydrALAZINE 20mg/ml inj. IV PRN (18:11)
[2023-02-27] MEDS: labetalol 20mg/4ml (5mg/ml) syringe IV PRN ×3 (18:24→18:52)
[2023-02-27] MEDS: enalaprilat dihydrate 2.5mg/2ml vial IV PRN ×2 (19:02→19:35)
[2023-02-27 20:56] LABS: ALBUMIN 1.8 G/DL (3.4-5.0); ANION GAP 5 (8-16); BLOOD UREA NITROGEN 11 MG/DL (7-18); BUN/CREATININE RATIO 17.2 (10.0-20.0); CALCIUM 8.1 MG/DL (8.5-10.1); CHLORIDE 98 MMOL/L (99-107); CREATININE 0.64 MG/DL (0.40-0.90); GLUCOSE 124 MG/DL (70-104); MAGNESIUM 1.8 MG/DL (1.5-2.4); POTASSIUM 3.8 MMOL/L (3.5-5.1); SODIUM 134 MMOL/L (135-145); TOTAL CARBON DIOXIDE 30.8 MMOL/L (24-32); eCRCL 79 ML/MIN; eGFR > 90 ML/MIN
[2023-02-27] MEDS ORDERED: metoclopramide 5mg/5ml oral solution PO PRN (23:45)
[2023-02-28] VITALS (26 sets, daily range): BP systolic 129–170; BP diastolic 66–91; PULSE 71–99; RESP 15–25; TEMP 98.5; O2SAT 92–99
[2023-02-28] MEDS: clindamycin-Cleocin 900mg/D5W 50 ML IV SCH ×3 (00:06→16:12)
[2023-02-28] MEDS: hydrALAZINE 20mg/ml inj. IV PRN (00:13)
[2023-02-28] MEDS: ampicillin/sulbac 3gm/NS 100ml 100 ML IV SCH ×4 (02:08→21:23)
[2023-02-28 02:32] LABS: BASOPHILS % (AUTO) 0.2 % (0-1); EOSINOPHILS % (AUTO) 0.1 % (0-6); HEMATOCRIT 27.6 % (35.0-45.0); LYMPHOCYTES # (AUTO) 0.8 X10'3 (1.1-4.8); LYMPHOCYTES % (AUTO) 5.1 % (21-51); MEAN CORPUSCULAR HEMOGLOBIN 28.4 PG (27.0-31.0); MEAN CORPUSCULAR HGB CONC 32.4 g/dL (33.0-36.5); MEAN CORPUSCULAR VOLUME 87.6 FL (78-98); MEAN PLATELET VOLUME 8.9 FL (7.4-10.4); MONOCYTES # (AUTO) 0.5 X10'3 (0-0.9); NEUTROPHILS # (AUTO) 14.9 X10'3 (1.8-7.7); NEUTROPHILS % (AUTO) 91.6 % (42-75); PLATELET COUNT 291 X10'3 (140-440); RED BLOOD COUNT 3.15 X10'6 (4.20-5.60); RED CELL DISTRIBUTION WIDTH 15.6 % (11.5-14.5); WHITE BLOOD COUNT 16.2 X10'3 (4.5-11.0)
[2023-02-28 02:40] LABS: ALANINE AMINOTRANSFERASE 15 U/L (12-78); ALBUMIN 1.8 G/DL (3.4-5.0); ALBUMIN/GLOBULIN RATIO 0.4 (1.1-1.5); ALKALINE PHOSPHATASE 34 IU/L (46-116); ANION GAP 2 (8-16); ASPARTATE AMINO TRANSFERASE 23 U/L (10-37); BILIRUBIN,TOTAL 0.5 MG/DL (0.1-1.0); BLOOD UREA NITROGEN 15 MG/DL (7-18); CALCIUM 8.2 MG/DL (8.5-10.1); CHLORIDE 98 MMOL/L (99-107); CREATININE 0.79 MG/DL (0.40-0.90); GLUCOSE 129 MG/DL (70-104); MAGNESIUM 1.7 MG/DL (1.5-2.4); PHOSPHORUS 3.9 MG/DL (2.3-4.5); POTASSIUM 3.7 MMOL/L (3.5-5.1); PREALBUMIN 13.4 MG/DL (19-36); SODIUM 134 MMOL/L (135-145); TOTAL CARBON DIOXIDE 34.3 MMOL/L (24-32); TOTAL PROTEIN 6.9 G/DL (6.4-8.2); eCRCL 64 ML/MIN; eGFR 73 ML/MIN
[2023-02-28 03:48] LABS: PLATELET ESTIMATE NORMAL; POLYCHROMASIA FEW; STOMATOCYTES 2+; TOTAL CELLS COUNTED 100
[2023-02-28] MEDS: ipratropium/albuterol 3ml nebule NEB SCH ×5 (04:08→20:40)
[2023-02-28] MEDS: docusate sodium 100mg/10ml UD cup NG SCH (08:00)
[2023-02-28] MEDS: furosemide 20 MG/2 ML vial IV SCH ×2 (08:17→21:44)
[2023-02-28] MEDS: pantoprazole 40 MG vial IV SCH (08:18)
[2023-02-28] MEDS: heparin, porcine 5000 units/ml vial SQ SCH ×2 (08:18→21:44)
[2023-02-28] MEDS: MULTIVIT-MIN/FERROUS GLUCONATE 9 MG/15 ML LIQUID NG SCH (08:18)
[2023-02-28] MEDS: fluconazole-Diflucan 200mg/NS 100 ML IV SCH (08:18)
[2023-02-28] MEDS: cyanocobalamin 500mcg tablet NG SCH (08:19)
[2023-02-28] MEDS: cholecalciferol (vitamin D3) 1,000 unit (25mcg) tablet NG SCH (08:19)
[2023-02-28] MEDS: calcium carbonate 500mg chew tablet NG SCH ×3 (08:19→16:13)
[2023-02-28] MEDS: levoTHYROXINE 25mcg tablet NG SCH (08:19)
[2023-02-28] MEDS: lactobacillus rhamnosus 10,000 MMU CELLS/CAPSULE PO SCH ×2 (08:19→21:44)
[2023-02-28] MEDS: levoTHYROXINE 112mcg tablet NG SCH (08:19)
[2023-02-28] MEDS: nystatin 15 GM powder TP SCH ×3 (08:20→21:22)
[2023-02-28] MEDS: K and/or MAG REPLACEMENT MC SCH ×2 (08:22→20:00)
[2023-02-28] MEDS ORDERED: LIDOcaine Viscous 15ml cup MM PRN (08:45)
[2023-02-28] MEDS ORDERED: losartan 25mg tablet PO SCH (10:36)
[2023-02-28] MEDS ORDERED: amLODIPine 5mg tablet PO SCH (10:36)
[2023-02-28] MEDS ORDERED: losartan 25mg tablet NG SCH (10:37)
[2023-02-28] MEDS ORDERED: amLODIPine 5mg tablet NG SCH (10:37)
[2023-02-28] MEDS ORDERED: HYDROcodone/acetaminophen 10/325mg tab PO PRN ×2 (11:35)
[2023-02-28] MEDS: nystatin 500,000 unit/5ML UD oral suspension PO SCH ×3 (11:37→21:22)
[2023-02-28] MEDS: morphine 2 MG/ML inj. syringe IV PRN (21:22)
[2023-03-01] VITALS (14 sets, daily range): BP systolic 128–193; BP diastolic 65–70; PULSE 58–87; RESP 16–28; TEMP 97.8–98.2; O2SAT 92–98
[2023-03-01] MEDS: ipratropium/albuterol 3ml nebule NEB SCH ×5 (00:04→15:10)
[2023-03-01] MEDS: clindamycin-Cleocin 900mg/D5W 50 ML IV SCH ×2 (00:17→09:30)
[2023-03-01] MEDS: morphine 2 MG/ML inj. syringe IV PRN ×3 (01:29→13:49)
[2023-03-01] MEDS: ampicillin/sulbac 3gm/NS 100ml 100 ML IV SCH ×2 (01:40→08:47)
[2023-03-01 05:01] LABS: BASOPHILS % (AUTO) 0.3 % (0-1); EOSINOPHILS # (AUTO) 0.1 X10'3 (0-0.9); EOSINOPHILS % (AUTO) 1.1 % (0-6); HEMATOCRIT 26.3 % (35.0-45.0); HEMOGLOBIN 8.7 g/dl (12.0-16.0); LYMPHOCYTES # (AUTO) 1.8 X10'3 (1.1-4.8); LYMPHOCYTES % (AUTO) 16.3 % (21-51); MEAN CORPUSCULAR HEMOGLOBIN 29.1 PG (27.0-31.0); MEAN CORPUSCULAR HGB CONC 33.2 g/dL (33.0-36.5); MEAN CORPUSCULAR VOLUME 87.7 FL (78-98); MEAN PLATELET VOLUME 8.7 FL (7.4-10.4); MONOCYTES # (AUTO) 0.8 X10'3 (0-0.9); MONOCYTES % (AUTO) 7.1 % (2-12); NEUTROPHILS # (AUTO) 8.5 X10'3 (1.8-7.7); NEUTROPHILS % (AUTO) 75.2 % (42-75); PLATELET COUNT 297 X10'3 (140-440); RED CELL DISTRIBUTION WIDTH 15.4 % (11.5-14.5); WHITE BLOOD COUNT 11.4 X10'3 (4.5-11.0)
[2023-03-01 05:13] LABS: ALANINE AMINOTRANSFERASE 17 U/L (12-78); ALBUMIN 1.8 G/DL (3.4-5.0); ALBUMIN/GLOBULIN RATIO 0.4 (1.1-1.5); ALKALINE PHOSPHATASE 29 IU/L (46-116); ANION GAP 3 (8-16); ASPARTATE AMINO TRANSFERASE 21 U/L (10-37); BILIRUBIN,TOTAL 0.4 MG/DL (0.1-1.0); BLOOD UREA NITROGEN 15 MG/DL (7-18); BUN/CREATININE RATIO 18.5 (10.0-20.0); CALCIUM 8.1 MG/DL (8.5-10.1); CHLORIDE 100 MMOL/L (99-107); CREATININE 0.81 MG/DL (0.40-0.90); GLUCOSE 125 MG/DL (70-104); MAGNESIUM 1.8 MG/DL (1.5-2.4); PHOSPHORUS 3.2 MG/DL (2.3-4.5); SODIUM 136 MMOL/L (135-145); TOTAL CARBON DIOXIDE 32.6 MMOL/L (24-32); TOTAL PROTEIN 6.4 G/DL (6.4-8.2); eCRCL 62 ML/MIN; eGFR 71 ML/MIN
[2023-03-01] MEDS ORDERED: POTASSIUM BICARB 20meq eff tab 20 MEQ TABLET.EFF PO PRN ×2 (05:50→15:10)
[2023-03-01] MEDS ORDERED: K and/or MAG REPLACEMENT MC SCH (08:00)
[2023-03-01] MEDS: nystatin 15 GM powder TP SCH ×2 (08:00→13:25)
[2023-03-01] MEDS ORDERED: cholecalciferol (vitamin D3) 1,000 unit (25mcg) tablet NG SCH (08:00)
[2023-03-01] MEDS: K and/or MAG REPLACEMENT MC SCH (08:00)
[2023-03-01] MEDS: calcium carbonate 500mg chew tablet NG SCH ×2 (08:30→12:30)
[2023-03-01] MEDS: levoTHYROXINE 112mcg tablet NG SCH (09:08)
[2023-03-01] MEDS: levoTHYROXINE 25mcg tablet NG SCH (09:08)
[2023-03-01] MEDS: lactobacillus rhamnosus 10,000 MMU CELLS/CAPSULE PO SCH (09:09)
[2023-03-01] MEDS: MULTIVIT-MIN/FERROUS GLUCONATE 9 MG/15 ML LIQUID NG SCH (09:10)
[2023-03-01] MEDS: furosemide 20 MG/2 ML vial IV SCH (09:10)
[2023-03-01] MEDS: pantoprazole 40 MG vial IV SCH (09:10)
[2023-03-01] MEDS: cyanocobalamin 500mcg tablet NG SCH (09:11)
[2023-03-01] MEDS: heparin, porcine 5000 units/ml vial SQ SCH (09:12)
[2023-03-01] MEDS: nystatin 500,000 unit/5ML UD oral suspension PO SCH ×2 (09:12→14:38)
[2023-03-01] MEDS: fluconazole-Diflucan 200mg/NS 100 ML IV SCH (11:56)
[2023-03-01] MEDS ORDERED: POTASSIUM BICARB 20meq eff tab 20 MEQ TABLET.EFF NG PRN ×2 (15:10→15:11)
[2023-03-01] MEDS ORDERED: valacyclovir 500mg tablet NG SCH (20:00)
== END 2023-03-01 17:05 | DRG 853 ==
LOC: ER 08:06 → ED HOLD 15:42 → PCU 3S 19:38 → CICU 2S 02-20 16:21 → ORTHO 4S 02-28 20:36
PROVIDERS: ADMIT Internal Medicine; ATTEND Internal Medicine
PROC: 0BH17EZ Insertion of Endotracheal Airway into Trachea, Via Natural or Artificial Opening (ICD-10-PCS; 2023-02-20)
PROC: 5A1945Z Respiratory Ventilation, 24-96 Consecutive Hours (ICD-10-PCS; 2023-02-20)
PROC: 0X6 Anatomical Regions, Upper Extremities, Detachment (ICD-10-PCS; principal; 2023-02-20 13:09)
PROC: 0KB80ZZ Excision of Left Upper Arm Muscle, Open Approach (ICD-10-PCS; 2023-02-22)
PROC: 30233N1 Transfusion of Nonautologous Red Blood Cells into Peripheral Vein, Percutaneous Approach (ICD-10-PCS; 2023-02-24)
PROC: 05HD33Z Insertion of Infusion Device into Right Cephalic Vein, Percutaneous Approach (ICD-10-PCS; 2023-02-25)
PROC: 0JQF0ZZ Repair Left Upper Arm Subcutaneous Tissue and Fascia, Open Approach (ICD-10-PCS; 2023-02-27)
PROC: 3E0T3BZ Introduction of Anesthetic Agent into Peripheral Nerves and Plexi, Percutaneous Approach (ICD-10-PCS; 2023-02-27)
PROC: 5A09357 Assistance with Respiratory Ventilation, Less than 24 Consecutive Hours, Continuous Positive Airway Pressure (ICD-10-PCS; 2023-02-28)
DX: A40.9 Streptococcal sepsis, unspecified (principal); J96.00 Acute respiratory failure, unspecified whether with hypoxia or hypercapnia; M72.6 Necrotizing fasciitis; N17.0 Acute kidney failure with tubular necrosis; R65.21 Severe sepsis with septic shock; E87.1 Hypo-osmolality and hyponatremia; G93.40 Encephalopathy, unspecified; N39.0 Urinary tract infection, site not specified; E87.20 Acidosis, unspecified; B37.0 Candidal stomatitis; Z68.42 Body mass index [BMI] 45.0-49.9, adult; F32.A Depression, unspecified; J98.2 Interstitial emphysema; E11.9 Type 2 diabetes mellitus without complications; E87.6 Hypokalemia; Z20.822 Contact with and (suspected) exposure to COVID-19; D69.6 Thrombocytopenia, unspecified; D63.8 Anemia in other chronic diseases classified elsewhere; B35.4 Tinea corporis; E66.01 Morbid (severe) obesity due to excess calories; I10 Essential (primary) hypertension; K21.9 Gastro-esophageal reflux disease without esophagitis; E03.9 Hypothyroidism, unspecified; Z98.84 Bariatric surgery status; Z88.2 Allergy status to sulfonamides; Z90.49 Acquired absence of other specified parts of digestive tract; Z95.1 Presence of aortocoronary bypass graft; Z79.899 Other long term (current) drug therapy
CPT/HCPCS: 36410; 36415; 36430; 36600; 71045; 74018; 76770; 76881; 76937; 80048; 80053; 81001; 82570; 82803; 82948; 83036; 83605; 83735; 83880; 83930; 83935; 84100; 84132; 84133; 84134; 84145; 84156; 84300; 84443; 84478; 84484; 85007; 85018; 85025; 85379; 85610; 85651; 86140; 86885; 86900; 86901; 86920; 87040; 87077; 87081; 87088; 87186; 87207; 87502; 87503; 87811; 88305; 88307; 90715; 92508; 92616; 93005; 93306; 94002; 94003; 94640; 94660; 94760; 97110; 97161; 97530; 99285; A4615; A4618; A5200; A6154; A6196; A6213; A6222; A6223; A6250; A6253; A6258; A6260; A6402; A6446; A6449; A6455; A7000; A9900; C1751; C9113; G0378; J0295; J0330; J0360; J0690; J0696; J0744; J1100; J1450; J1644; J1940; J2250; J2270; J2704; J2710; J3010; J3475; J3480; J3490; J7030; J7040; J7120; J8597; P9016; P9045; Q0163

== ENCOUNTER 2024-12-07 07:51 | Day surgery (SDC) | payer MEDICARE, BC ==
[2024-12-03 11:54] LABS: MEAN PLATELET VOLUME 8.1 FL (7.4-10.4); PRE OP HEMATOCRIT 35.8 % (35.0-45.0); PRE OP HEMOGLOBIN 11.2 g/dL (12.0-16.0); PRE OP PLATELET COUNT 338 X10'3 (140-440); PRE OP WHITE BLOOD COUNT 9.2 10'3 (4.8-10.8); RED CELL DISTRIBUTION WIDTH 17.2 % (11.5-14.5)
--- NOTE | 2024-12-03 11:57 | ELECTROCARDIOGRAPH REPORT ---
[facility] Test Date: 2024-12-03 Test Time: 11:55:00 Pat Name: DAMIR DAVIS Department: [facility]-PRE-OP Patient ID: [id number] Room: Gender: F Certified Ophthalmic Assistant: edgar : 1960 Requested By: SCOTTY LOUIS Order Number: [id number] Reading MD: Dr. Kolton Romero Measurements Intervals [place] Rate: 75 P: 45 MI: 147 QRS: 15 QRSD: 105 T: 16 QT: 438 QTc: 490 Interpretive Statements Sinus rhythm Probable LVH with secondary repol abnrm Borderline prolonged QT interval Electronically Signed On 12-04-2024 8:49:[address] Kolton Romero Please click the below link to view image of tracing.
[2024-12-03 12:18] LABS: CREATININE 1.21 MG/DL (0.40-0.90); PRE OP ALT 27 U/L (30-65); PRE OP ANION GAP 7 (8-16); PRE OP AST 31 U/L (10-37); PRE OP BILIRUB, TOTAL 0.6 MG/DL (0.0-1.0); PRE OP GLUCOSE 96 MG/DL (70-104); PRE OP POTASSIUM 4.2 MMOL/L (3.4-5.1); PRE OP SODIUM 138 MMOL/L (135-145); TOTAL CARBON DIOXIDE 29.5 MMOL/L (24-32); eGFR 45 ML/MIN
[~2024-12-07] VITALS: Ht 162.6 cm; Wt 120.2 kg
[2024-12-07] VITALS (11 sets, daily range): BP systolic 130–170; BP diastolic 60–92; PULSE 60–73; RESP 14–20; TEMP 97.8; O2SAT 93–99
[2024-12-07] MEDS: Cefazolin 3 GM/100ML NS IVPB 100 ML IV ONE (05:30)
[~2024-12-07 07:51] MED LIST changes: +ACET-1025 PO; -ACET-2319 PO; +AMLO5TAB16 PO; +BUPIVAcaine/PF 2.5mg/ml (0.25%) 10ml vial ONE; +BUPR-726 PO; -CHOL200074 PO; +CITA40TA16 PO; +DIPH25CA52 PO; -ESCI20TA39 PO; +ESZO1TAB13 PO; -FERR325T28 PO; -HYDR-4383 PO; +LIDOcaine 2% (20mg/ml) 5ml vial ONE; -LISI1TAB51 PO; -NAPR375T PO; +OMEP20CA16 PO; -ONDA4TAB6 PO; -OXYC-150 PO; -PANT-47 PO
[2024-12-07] MEDS: ringers solution, lacted 1,000 ML IV SCH (08:52)
[2024-12-07] MEDS ORDERED: BUPIVAcaine 2.5mg/ml inj 50ml vial (contains preservative) ONE (09:19)
[2024-12-07] MEDS ORDERED: fentaNYL/PF 50MCG/1 ML 2ML syringe ONE (10:06)
[2024-12-07] MEDS ORDERED: propofol inj 20 ML IV ONE ×2 (10:28→11:00)
[2024-12-07] MEDS ORDERED: LIDOcaine 0.5% (5mg/ml) 50ml vial ONE (10:28)
[2024-12-07] MEDS ORDERED: midazolam 1 mg/ML 2ml injection ONE (10:28)
[2024-12-07] MEDS: BUPIVAcaine 0.25% w/Epi /PF 30ml vial IJ ONE (10:37)
[2024-12-07] MEDS ORDERED: hydrALAZINE 20mg/ml inj. ONE (10:39)
[2024-12-07] MEDS ORDERED: labetalol 20mg/4ml (5mg/ml) syringe IV PRN (10:55)
[2024-12-07] MEDS ORDERED: hydrALAZINE 20mg/ml inj. IV PRN (10:55)
[2024-12-07] MEDS ORDERED: morphine 4 MG/ML inj SYRINge IV PRN (10:55)
[2024-12-07] MEDS ORDERED: HYDROmorphone/PF 0.2 MG/ML SYRINGE IV PRN ×2 (10:55)
[2024-12-07] MEDS ORDERED: acetaminophen 1,000mg/100ml IV 100 ML IV PRN (10:55)
[2024-12-07] MEDS ORDERED: ringers solution, lacted 1,000 ML IV SCH (10:55)
[2024-12-07] MEDS: ondansetron/PF 4mg/2ml inj IV PRN (11:25)
--- NOTE | 2024-12-07 12:53 | OPERATIVE REPORT ---
Operative Report Providers to ~ Date of Procedure: Dec 07, 2024 Pre-Operative Diagnosis: Right thumb carpometacarpal joint arthritis Post-Operative Diagnosis SAME as PRE-Op Procedure Performed Right thumb carpometacarpal joint suspension plasty utilizing suture anchor in the trapezium excision Surgeon: Jaiden Marina MD Wallpaperer None Anesthesiologist: Ana Cristina Romero Type of Anesthesia: Regional Findings: Complications None Prosthetics\Implants used: [place] line suture anchor Estimated Blood Loss: None Specimen Removed: None Description of Procedure: This patient is a 64 year old woman with fairly significant right thumb carpometacarpal joint arthritis. Surgery is indicated to improve function after failure of conservative treatment. 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 The reason for this type of surgery over traditional tendon interposition arthroplasty is to reduce recovery time Risks and benefits were discussed with the patient. Some of the risks and involved with this type of procedure include but are not limited to infection, bleeding, nerve damage, numbness over the surgical site, thumb stiffness and incomplete relief of pain. Patient agreed to proceed. The partient was brought to the operating room where the anesthetic and antibiotics were given. The arm was prepped and draped in usual manner and proper timeout procedure was observed. Curved incision was made over the thumb dorsal metacarpal curving over to the volar wrist crease. Flaps were elevated nerves were protected. An arthrotomy was made around the trapezium which was then removed using the sagittal saw and rongeur. We utilized the ANCHOR LINE CMC corkscrew anchor system to stabilize the thumb CMC. Under fluoroscopic guidance to the guidepin was advanced obliquely from the base of the second metacarpal heading distally. This was then replaced by the first corkscrew implant. Second drill hole was made vertically in the base of the metacarpal and the second corkscrew was placed. The suture line was then tensioned appropriately and tightened down and then tied off. This completed the SUSPENSIONPLASTY. This was done under fluoroscopy and then motion was checked under fluoroscopy and showed good motion at the CMC joint and excellent suspension of the metacarpal. Incision was irrigated and closed in layers. Marcaine was injected and a sterile dressing was applied including a splint. The tourniquet was released and perfused well. The patient was taken to the recovery room in stable condition and tolerated the procedure well. Counts repoted as correct: Yes JAIDEN MRAINA Jr., MD Dec 07, 2024 12:53
--- NOTE | 2024-12-08 14:40 | PATHOLOGY REPORT ---
[facility] [address] [place] [address] SURGICAL PATHOLOGY REPORT CaseNumber: [id number] Surgeon:Jaiden Marina M.D. CLINICAL INFORMATION CLINICAL INFORMATION: Right palm mass. 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 MICROSCOPIC DESCRIPTION MICROSCOPIC DESCRIPTION: Reviewed is a single H&E-stained slide showing sections of a hemangioma associated with central tissue degeneration and necrosis as well as slightly increased numbers of chronic inflammatory cells. GROSS DESCRIPTION GROSS DESCRIPTION: Received in a container of formalin labeled with the patient's name, number, and "mass right palm" is a 1.6 x 1.3 x 1 cm nodule of pink-bailey tissue. The specimen is sectioned. The specimen is entirely submitted as A1. The time at which the specimen was removed was not provided. The time at which the specimen was placed in formalin was not provided. Electronically signed by: Chris Frey M.D. 12/08/2024 2:07:00 PM
== END 2024-12-07 12:53 | disposition home or self-care (01) ==
LOC: PAS 07:51
PROVIDERS: ATTEND Orthopaedic Surgery Hand Surgery
DX: M18.11 Unilateral primary osteoarthritis of first carpometacarpal joint, right hand (principal); D18.09 Hemangioma of other sites; F17.200 Nicotine dependence, unspecified, uncomplicated; I10 Essential (primary) hypertension; J44.9 Chronic obstructive pulmonary disease, unspecified; G47.30 Sleep apnea, unspecified; I25.2 Old myocardial infarction; K21.9 Gastro-esophageal reflux disease without esophagitis; E11.9 Type 2 diabetes mellitus without complications; Z82.49 Family history of ischemic heart disease and other diseases of the circulatory system; E66.9 Obesity, unspecified; F32.9 Major depressive disorder, single episode, unspecified; I48.91 Unspecified atrial fibrillation; Z98.890 Other specified postprocedural states; Z68.42 Body mass index [BMI] 45.0-49.9, adult; Z88.2 Allergy status to sulfonamides; Z98.84 Bariatric surgery status; Z90.89 Acquired absence of other organs; Z96.652 Presence of left artificial knee joint; Z96.651 Presence of right artificial knee joint; Z98.49 Cataract extraction status, unspecified eye; Z79.899 Other long term (current) drug therapy
CPT/HCPCS: 25448; 36415; 80053; 82948; 85025; 88305; 93005; A4215; A4618; A6449; A7000; C1713; J0360; J0665; J0690; J2003; J2250; J2405; J2704; J3010; J3490; J7030; J7120; Z7506; Z7508; Z7512; Z7610